=== PATIENT | male | born 1980 | race American Indian/Alaskan Native ===

== ENCOUNTER 2017-09-25 18:34 | Emergency (ER) | payer SELFPAY ==
[~2017-09-25] VITALS: Ht 180.3 cm; Wt 91.6 kg
[2017-09-25] MEDS ORDERED: CEPHALEXIN500 MG PO (19:30)
[2017-09-25] MEDS ORDERED: ACETAMINOPHEN-1 EAC1 PO (19:30)
== END 2017-09-25 19:40 | disposition home or self-care (01) ==
LOC: ED 18:34
DX: K08.89 Other specified disorders of teeth and supporting structures (principal); Z88.5 Allergy status to narcotic agent; Z88.8 Allergy status to other drugs, medicaments and biological substances; Z79.2 Long term (current) use of antibiotics
CPT/HCPCS: 99283